=== PATIENT | male | born 1945 | race Caucasian/White ===

== ENCOUNTER 2017-07-08 10:33 | Outpatient (CLI) | payer MEDICARE, OTHER ==
--- NOTE | ~2017-07-08 | OP ---
PATIENT NAME: DEMETRIO WAHL MEDICAL RECORD: [id number] :43 LOCATION:D.M2 D.2117 ADMISSION DATE:07/08/17 SURGEON: BELLA DELONG MD DATE OF OPERATION: 07/08/2017 PROCEDURE: Lead portion of permanent pacemaker placement. INDICATION: Sick sinus syndrome with PAF, jareth escape rhythms. SURGEON: Neymar Harvey MD DESCRIPTION OF PROCEDURE: After the left subclavian was cannulated via modified Seldinger technique by Dr. Harvey, first under fluoroscopic guidance, I placed the RV lead in the RV apex without difficulty. After adequate R waves and thresholds were obtained, then placed the right atrial lead in the right atrial appendage without difficulty. After adequate flutter waves were obtained, the leads were attached to appropriate poles of the generator. The pocket was closed by Dr. Harvey. IMPRESSION: Successful lead portion of permanent pacemaker placement. COMPLICATIONS: None. ESTIMATED BLOOD LOSS: Minimal. DISPOSITION: To the floor, stable. TRANSINT:[id number] Voice Confirmation ID: [id number] DOCUMENT ID: [id number] BELLA DELONG MD at 0920 CC: [id number] DICTATION DATE: 07/08/17 1346 MANAGER HEART FAILURE: 07/08/17 1456 DIS IN 07/09/17 [place] [id number] [place] [address]
--- NOTE | ~2017-07-08 | OP ---
PATIENT NAME: DEMETRIO WAHL MEDICAL RECORD: [id number] :43 LOCATION:D.CAT ADMISSION DATE: SURGEON: SHELL MARIE MD DATE OF OPERATION: 07/08/2017 PREOPERATIVE DIAGNOSIS: Sick sinus syndrome with bradyarrhythmia. POSTOPERATIVE DIAGNOSIS: Sick sinus syndrome with bradyarrhythmia. PROCEDURES: Creation of pacemaker pocket. Insertion of pacemaker leads into the central venous system with closure of the pacemaker pocket. This was a cosurgeon case. The crewman armoured personnel carrier m113 was Jean Claude Jacobs MD GENERAL SURGEON: Shell Marie MD ANESTHESIA: Local with IV sedation. COMPLICATIONS: None. BLOOD LOSS: Minimal. This was a cosurgeon case. Due to the complexity of the operation, it was necessary to have 2 attending surgeons present, a crewman armoured personnel carrier m113 and a general surgeon. DESCRIPTION OF PROCEDURE: The patient was conveyed to the cardiac catheterization laboratory on 07/08/2017. IV sedation was induced by the nursing staff under my direction. The left chest was sterilely prepped and draped. A local anesthetic was used to infiltrate the skin and subcutaneous tissues inferior to the left clavicle. A transverse incision was accomplished inferior to the left clavicle. A subcutaneous pocket was fashioned bluntly in a caudad direction. I had an dietitian assistant pull down on the left arm toward the foot. Through the pacemaker pocket, I was able to advance a needle under the left clavicle, utilizing an antegrade approach to the subclavian vein. This was visualized under fluoroscopy. A guidewire passed easily. This was visualized under fluoroscopy as well. A 9-Mexican dilator sheath was advanced over the wire. This was visualized under fluoroscopic guidance. The dilator was removed. Through the 9-Mexican sheath, the ventricular lead was advanced. Dr. Jean Claude Jacobs positioned the ventricular lead. Appropriate thresholds were obtained. I then sutured the ventricular lead down to the underlying pectoralis fascia with 2-0 TiCron times 2. Over the secondary wire, a 7-Mexican dilator sheath was advanced. This was visualized under fluoroscopic guidance. The dilator and wire were removed. Through the sheath, an atrial lead was advanced. The Peel-Away sheath was then removed. Dr. Jean Claude Jacobs then positioned the atrial lead. Appropriate thresholds were obtained. I then sutured the atrial lead down to the underlying pectoralis fascia with 2-0 TiCron times 2. The pacemaker generator was then brought onto the sterile field. I confirmed with the pacemaker customer response representative the serial number on the ventricular lead. It was then placed within the ventricular dock of the pacemaker and tightened down with the wrench. I tried to dislodge the ventricular lead and was unable to do so. I then confirmed with pacemaker customer response representative the serial number on the atrial lead. This was placed in the atrial dock of the pacemaker generator and then tightened down with the wrench. I tried to dislodge the atrial lead and was unable to do so. The pacemaker generator and wires were then placed in the OPERATIVE REPORT [id number] WAHLDEMETRIO Logan pacemaker pocket. Care was paid to place the wires posterior to the generator. The pacemaker was then sutured to the underlying pectoralis fascia with 2-0 TiCron times 1. I irrigated the pacemaker pocket. There was no bleeding even at low pressure of 8. The deep adipose tissue was closed with interrupted 3-0 Vicryls. The subcutaneous adipose tissue was closed with interrupted 3-0 Vicryls. The skin was approximated with a running intracuticular 3-0 Vicryl. A sterile dressing was applied. We then examined the pacemaker generator and the wires again. The wires appeared to have been well placed and had not been dislodged. The pacemaker generator appeared to be in good position. There was no radiographic evidence of complication. The patient was then conveyed back to their room. I will see the patient on a p.r.n. basis. There is no need for the patient to follow up with me unless the patient develops a complication related to this operative procedure. My involvement in the procedure was creation of the pacemaker pocket, vascular access into the central venous system, placement of the pacemaker generator into the pocket and then closure. TRANSINT:[id number] Voice Confirmation ID: [id number] DOCUMENT ID: [id number] SHELL MARIE MD at 1607 CC: JEAN CLAUDE DELONG MD [id number] DICTATION DATE: 07/08/17 1610 HAND BUFFING WHEEL FORMER: 07/08/17 1629 DEP CLI 07/09/17 [place] [id number] [place] [address]
--- NOTE | ~2017-07-08 | HP ---
PATIENT: DEMETRIO WAHL MEDICAL RECORD: [id number] ACCOUNT: [id number] LOCATION:MARIAM : 43 ADMISSION DATE: 07/08/17 HISTORY AND PHYSICAL EXAMINATION DIAGNOSES: 1. Angina. 2. Hypertension. 3. Hyperlipidemia. 4. Paroxysmal atrial fibrillation. HISTORY OF PRESENT ILLNESS: This is a gentleman who presents with increasing anginal symptomatology in a relatively unstable progressive fashion. He does have a history of coronary artery disease, atrial fibrillation, hypertension, hyperlipidemia. PHYSICAL EXAMINATION: GENERAL APPEARANCE: Well-nourished, well-developed, appears stated age. Level of distress, comfortable. PSYCHIATRIC: Mental status, alert, normal affect. Orientation, oriented to time, place and person. EYES: Lids and conjunctiva, noninjected. No discharge, no pallor. ENT: Lips, teeth, gums, normal dentition. Oropharynx, no cyanosis, no pallor. NECK: Carotid arteries, bilateral normal upstroke, no bruits, no thrills. JUGULAR VEINS: No jugular venous pressure or distention. CERVICAL LYMPH NODES: Nontender, nonenlarged. THYROID: Not enlarged. Nontender. No nodules. LUNGS: Respiratory effort, unlabored. CHEST: Normal curvature. No thoracic deformity. No chest wall tenderness. Percussion, resonant. Auscultation, clear. No wheezes, no rales, no rhonchi. CARDIOVASCULAR: Precordial exam, nondisplaced. No heaves or pericardial thrills. Rate and rhythm, regular. Heart sounds, normal S1, normal S2. No S3, no gallop, no rub. Systolic murmur, not heard. Diastolic murmur, not heard. EXTREMITIES: No cyanosis, no edema. Peripheral pulses, full and equal in all extremities, except as noted. No bruits appreciated. ABDOMEN: Soft, nondistended. Normal aorta. No bruit. Nontender. No masses. Liver, nontender, no hepatomegaly. Spleen, nontender, no splenomegaly. MUSCULOSKELETAL: No joint tenderness. No joint swelling. No erythema. NEUROLOGICAL: Normal gait, normal strength, normal tone. SKIN: Warm and dry. REVIEW OF SYSTEMS: The patient reports easy bruising but reports no swollen glands. The patient reports no fever, no night sweats, no significant weight gain, no significant weight loss. No significant exercise tolerance. The patient reports no dry eyes, no irritation, no vision change. Patient reports no difficulty hearing and no ear pain. Patient reports no frequent nose bleeds or nose and sinus problems. Patient reports on arm pain on exertion. No shortness of breath while lying down. No history of heart murmur. Patient reports no cough, no wheezing or coughing up blood. Patient reports no abdominal pain, no vomiting. Normal appetite. No diarrhea and not vomiting blood. No nausea and no constipation. Patient reports no incontinence. No difficulty urinating. No hematuria. No increased frequency. Patient reports no muscle aches. No weakness, no arthralgias, no back pain. No swelling of the extremities. Patient reports no abnormal mole, no jaundice, no rashes. Reports no loss of consciousness. No weakness and no numbness. No seizures, dizziness, HISTORY AND PHYSICAL [id number] DEMETRIO WAHL or headaches. The patient reports no depression, no sleep disturbance, feeling safe in a relationship and no alcohol abuse. Patient reports on fatigue. Reports no runny nose or sinus pressure. No itching, no hives, and no frequent sneezing. IMPRESSION: Anginal symptomatology in an increasing fashion. We will proceed with coronary angiography. Further care depends upon the findings of the angiography. TRANSINT:[id number] Voice Confirmation ID: [id number] DOCUMENT ID: [id number] MONIKA WEBB MD at 1153 CC: [id number] DICTATION DATE: 07/08/17 0951 SHELLFISH FARMING SUPERVISOR: 07/08/17 1003 DEP CLI 07/09/17 [place] [id number] [place] [id number]
--- NOTE | ~2017-07-08 | HEMODYNAMI ---
PATIENT:DEMETRIO WAHL MEDICAL RECORD: [id number] : 41 LOCATION:D.CAT ADMISSION DATE: 07/08/17 Generatedon:07/08/201714:00 Patient name: DEMETRIO WAHL Patient #: [id number] SSN: : 1945 Date of study: 07/08/2017 Page: Of Hemodynamic Procedure Report Patient Data Patient Demographics Procedure consent was obtained First Name: DEMETRIO Gender: Male Last Name: VISH : 1945 [facility] Initial: C Age: 72 year(s) Patient #: [id number] Race: Unknown Additional ID: [id number] Contact details Address: [address] [place] [address] State: [place] City: [place] Zip code: [address] Past Medical History Allergies Allergen Reaction Date Comments Reported Penicillins 07/08/2017 Morphine 07/08/2017 Admission Admission Data Admission Date: 07/08/2017 Admission Time: 10:33 Procedure Procedure Types Cath Procedure Diagnostic Procedure PPM/ICD PPM Dual Implant Sedation Charges Moderate Sedation up to 30 minutes Procedure Description Procedure Date Procedure Date: 07/08/2017 Procedure Start Time: 13:24 Procedure End Time: 14:00 Procedure Staff Name Function Jean Claude Delong MD Performing Physician Neymar Harvey MD Assisting physician Abdoulaye Reyes RN Nurse Chana Vaughn RT Monitor Jose Alejandro Mcrae RT Scrub Procedure Data Cath Procedure Fluoroscopy Diagnostic fluoroscopy Total fluoroscopy Time: 1 time: 1 min min Diagnostic fluoroscopy Total fluoroscopy dose: dose: 44.1 mGy 44.1 mGy Estimated blood loss: 5 ml Procedure Complications No complications Procedure Medications Medication Administration Route Dosage Vancomycin I.V.P.B 1 g Bupivacaine 0.5% S.Q. 100 Lidocaine 1% with added to field 20 Epi 0.9% NaCl I.V. 25 ml/hr Vancomycin Topical 1 g Irrigation Versed I.V. 2 mg Versed I.V. 2 mg Versed I.V. 2 mg Hemodynamics Rest Heart Rate: 47 (bpm) Snapshots Pre Cath Intra NCS Post Cath Vital Signs Time Heart Resp SPO2 etCO2 NIBP (mmHg) Rhythm Pain Sedation Rate (ipm) (%) (mmHg) Status Level (bpm) 13:08:09 47 20 96 0 120/72(104) A-Flutter 0 (11) 10(A) , No pain 13:12:36 45 19 94 0 136/72(108) A-Flutter 0 (11) 10(A) , No pain 13:17:02 48 13 96 0 123/79(112) A-Flutter 0 (11) 10(A) , No pain 13:21:31 56 28 96 0 128/65(105) A-Flutter 0 (11) 10(A) , No pain 13:26:01 58 17 96 0 117/78(91) A-Flutter 0 (11) 10(A) , No pain 13:30:19 75 18 98 0 119/89(100) A-Flutter 0 (11) 10(A) , No pain 13:34:39 99 16 99 0 135/86(110) A-Flutter 0 (11) 10(A) , No pain 13:39:07 60 17 97 0 150/80(118) A-Flutter 0 (11) 10(A) , No pain 13:43:36 56 17 98 0 119/83(99) A-Flutter 0 (11) 10(A) , No pain 13:47:56 60 18 97 0 137/81(120) A-Flutter 0 (11) 10(A) , No pain 13:52:24 59 20 96 0 130/79(114) A-Flutter 0 (11) 10(A) , No pain 13:56:46 89 19 96 0 136/97(115) A-Flutter 0 (11) 10(A) , No pain Medications Time Medication Route Dose Verified Delivered Reason Notes Effectiv eness by by 13:00:17 Vancomycin I.V.P.B 1 g Jean Claude Stanford used for [facility] Darrick Reyes paid search manager 13:06:03 Bupivacaine S.Q. 100 Jean Claude Blackmon for local 0.5% ml x2 [facility] Darrick Harvey anesthetic MD SMITH 13:06:12 Lidocaine added 20 ml Jean Claude Blackmon for local 1% with Epi to x2 St Darrick Harvey anesthetic field MD SMITH 13:06:22 0.9% NaCl I.V. 25 Jean Claude Blackmon Per ml/hr [facility] Darrick Harvey physician MD SMITH 13:06:37 Vancomycin Topical 1 g Jean Claude Blackmon used for Irrigation [facility] Darrick Harvey procedure MD SMITH 13:21:59 Versed I.V. 2 mg Jean Claude Stanford for [facility] Darrick Reyes RN anxiety 13:26:31 Versed I.V. 2 mg Jean Claude Blackmon for [facility] Darrick chew MD, MD 13:34:31 Versed I.V. 2 mg Jean Claude Blackmon for [facility] Darrick chew MD, MD Procedure Log Time Note 12:37:31 Abdoulaye Reyes RN sent for patient. Start room use. 12:37:32 Time tracking: Regular hours 12:37:36 Plan of Care:Hemodynamics will remain stable., Cardiac rhythm will remain stable., Comfort level will be maintained., Respiratory function will remain adequate., Patient/ family verbilizes understanding of procedure., Procedure tolerated without complication., Recovers from procedure without complications.. 12:45:22 Patient received from Pre/Post Procedure Room to [facility] 3 Alert and oriented. Tansferred to table in Supine position. 12:45:24 Warm blankets applied, and hakan hugger turned on for patient comfort. 12:45:24 Correct patient and procedure confirmed by team. 12:45:25 Signed procedure consent form obtained from patient. 12:45:26 ECG and BP/O2 sat monitors applied to patient. 12:45:27 Full Disclosure recording started 12:45:33 Rhythm: unchanged. 12:45:39 H&P Date Dictated: 07/08/2017 Within 30 days and on chart.. 12:45:40 Pre-procedure instructions explained to patient. 12:45:40 Pre-op teaching completed and patient verbalized understanding. 12:45:42 Family in waiting room. 12:45:43 Patient NPO since Midnight. 12:55:12 Use device set FRANK PPM 12:55:17 2-0 Ticron Multipack ([id number]) opened to sterile field. 12:55:19 3-0 Vicryl Single Pack [id number] opened to sterile field. 12:55:34 3-0 Vicryl Single Pack [id number] opened to sterile field. 12:55:36 Cautery Tip Pellet Machine Operator opened to sterile field. 12:55:36 Cautery Pushbutton Pencil opened to sterile field. 12:55:37 Mepilex Dressing (157634) opened to sterile field. 12:55:43 Immobilizer Large opened to sterile field. 12:57:06 Patient allergic to Penicillins 12:57:10 Patient allergic to Morphine 12:57:14 Is the patient allergic to Iodine/contrast media? No. 12:57:19 Is patient on blood thinner?Yes 12:57:48 Xarelto last dose 07-05-17 12:57:53 Patient diabetic? No. 12:57:58 Previous problem with sedation/anesthesia? No ? 12:58:01 Snore? Yes 12:58:02 Sleep apnea? Yes 12:58:03 Deviated septum? No 12:58:04 Opens mouth fully? Yes 12:58:04 Sticks out tongue? Yes 12:58:08 Airway obstruction? No ? 12:58:15 Dentures? No ? 12:58:29 Patient pain scale 0/10 ?. 12:58:35 IV patent on arrival in left hand with 0.9% NaCl at [facility]. 12:58:37 Lab results completed and on chart. 12:58:42 Left chest area was prepped with chlora-prep and draped in sterile fashion 12:58:43 Alarms reviewed by R. N. 12:58:44 Sharps counted by scrub and verified by R.N. 13:00:15 Baseline sample Acquired. 13:00:17 Vancomycin 1 g I.V.P.B was administered by Abdoulaye Reyes RN; used for procedure; 13:02:48 pt requested no pain medication only versed due to becomes angry with opaites. 13:05:31 Physician paged 13:06:03 Bupivacaine 0.5% 100 ml x2 S.Q. was administered by Neymar Harvey MD; for local anesthetic; 13:06:12 Lidocaine 1% with Epi 20 ml x2 added to field was administered by Neymar Harvey MD; for local anesthetic; 13:06:22 0.9% NaCl 25 ml/hr I.V. was administered by Neymar Harvey MD; Per physician; 13:06:37 Vancomycin Irrigation 1 g Topical was administered by Neymar Harvey MD; used for procedure; 13:06:39 Vital chart was started 13:07:33 Physician responded to page. 13:08:36 Medtronic Advisa MRI PPM Dual Generator [id number] opened to sterile field. 13:08:37 Medtronic 4074-52 PPM Lead opened to sterile field. 13:08:39 Medtronic 4574-45 PPM Lead opened to sterile field. 13:20:59 Final Timeout: patient, procedure, and site verified with staff and physician. All members of the team are in agreement. 13:21:06 Left chest site verified by team. 13:21:09 Physical assessment completed. ASA score P 2 - A patient with mild systemic disease as per Jean Claude Delong MD. 13:21:11 Sedation plan: IV Moderate Sedation Medication:Versed, Fentanyl 13:21:59 Versed 2 mg I.V. was administered by Abdoulaye Reyes RN; for anxiety; 13:24:08 Procedure started. 13:24:24 Medtronic sales representative jewelry VENTURA ORTEGA present for procedure. 13:24:44 Pre sharps counted by scrub and verified by RN: Sutures: 14; Sponges: 5; Stick needles: 2; Skin needles: 2; Blade: 1; Cautery: 1 13:24:46 Grounding pad site Left thigh. 13:24:48 Grounding pad site free from injury. 13:24:53 Lidocaine 1% w/epi and Bupivacaine 0.5% was administered to left subclavicular area by Neymar Harvey MD . 13:25:01 Incision made to left subclavicular area. 13:26:31 Versed 2 mg I.V. was administered by Neymar Harvey MD; for anxiety; 13:27:03 Generator pocket made/opened. 13:30:36 Left subclavian vein accessed with 9Fr Peel Away Sheath. 13:31:07 INTRODUCER J WIRE ADVANCED X 2 13:31:29 DR DELONG SCRUBBED IN 13:33:04 Ventricular lead inserted and advanced. 13:34:28 Ventricular lead positioned. 13:34:31 Versed 2 mg I.V. was administered by Neymar Harvey MD; for anxiety; 13:35:26 Ventricular lead tested. 13:36:51 Peel-a-way sheath was split and removed. 13:36:55 Ventricular lead attachment was completed with 2-0 ticron. 13:38:31 Left subclavian vein accessed with 7Fr Peel Away Sheath. 13:38:33 Atrial lead inserted and advanced. 13:39:28 Atrial lead positioned. 13:40:05 Atrial lead tested. 13:40:58 Peel-a-way sheath was split and removed. 13:41:04 Atrial lead attachment was completed with 2-0 ticron. 13:43:33 5 SUTURE NEEDLES ADDED TO FIELD 13:43:42 2-0 Ticron Multipack ([id number]) opened to sterile field. 13:44:08 PPM Dual was attached to lead(s) and inserted into pocket. 13:44:26 Generator was sutured in place with 2-0 ticron. 13:44:49 Device pocket was irrigated with Vancomycin. 13:46:08 Subcutaneous closure was completed with 3-0 vicryl. 13:51:15 Skin closure was completed with 3-0 vicryl. 13:51:27 Lt Chest incision was dressed with 4 x 4 and Tegaderm. 13:51:31 Procedure ended.(Physican Out) 13:51:40 Fluoroscopy time 01.00 minutes. 13:51:44 Fluoroscopy dose: 44.1 mGy 13:51:44 Flurop Dose total: 44.1 13:52:29 Sharps counted by scrub and verified by R.N. 13:52:31 Insertion/operative site no bleeding no hematoma. 13:52:54 Post-op/insertion site Left Chest area dressed using a Mepilex dressing. 13:53:01 Post Chest area:stable, clean and dry 13:53:03 Post Procedure Pulses reassessed and unchanged 13:53:09 Post-procedure physical assessment completed. ASA score P 2 - A patient with mild systemic disease as per Jean Claude Delong MD. 13:55:24 Post procedure rhythm: unchanged. 13:55:27 Estimated blood loss: 5 ml 13:55:28 Post procedure instruction explained to patient.Patient verbalizes understanding. 13:55:28 Patient needs reinforcement of post procedure teaching. 13:55:29 Procedure and supply charges have been captured, reviewed, submitted and are correct. 13:55:36 Procedure Complication : No complications 13:55:38 See physician's report for complete and final results. 13:57:57 Procedure type changed to Cath procedure, Diagnostic procedure, PPM/ICD, PPM Dual Implant, Sedation Charges, Moderate Sedation up to 30 minutes 13:58:20 Vital chart was stopped 13:59:55 Report given to PCU. 14:00:00 Patient transfered to PCU with Bed. 14:00:15 Procedure ended. 14:00:15 Full Disclosure recording stopped 14:00:19 End room use (Document Last) Device Usage Item Name Manufacture Quantity Catalog Hospital Part Current Minimal Lot# / Number Charge Number Stock Stock Serial# Code 2-0 Ticron Ethicon 2 [id number] [id number] 5 Multipack ([id number]) 3-0 Vicryl Ethicon 2 [id number] 967350 285940 5 Single Pack [id number] Cautery Tip Microtek 1 [id number] [id number] [id number] 5 Pellet Machine [employer] Cautery Microtek 1 [id number] [id number] 33886 [id number] 5 Pushbutton [employer] Inc[employer] Pencil Mepilex Cardinal 1 [id number] 837832 [id number] [id number] 5 [facility] ([id number]) Immobilizer Cardinal 1 [id number] 790440 671999 564106 5 Large Health Medtronic Medtronic 1 [id number] [id number] [id number] 5 SN Advisa MRI [id number] PPM Dual EXP Generator 2018-09-29 A2DR01 Medtronic Medtronic 1 4074-52 [id number] [id number] 5 SN 4074-52 PPM [id number] Lead EXP 2019-03-11 Medtronic Medtronic 1 4574-45 [id number] [id number] 5 SN 4574-45 PPM [id number] Lead EXP 2019-03-10 Signature Audit Corinne Stage Time Signature Unsigned Intra-Procedure 07/08/2017 Chana 2:00:29 PM Counts RT(R) Signatures Monitor : Chana Signature : Counts RT Date : Time : [place] [address] [place] [address]
[2017-07-08] MEDS ORDERED: RESTORIL15 MG PO (10:44)
[2017-07-08] MEDS ORDERED: TRIAMTERENE-HCT1 TA1 PO (10:44)
[2017-07-08] MEDS ORDERED: ZOCOR40 MG PO (10:45)
[2017-07-08] MEDS ORDERED: NEURONTIN 300300 MG PO (10:46)
[2017-07-08] MEDS ORDERED: TRAZODONE HCL50 MG PO (10:46)
[2017-07-08] MEDS ORDERED: XARELTO20 MG PO (10:47)
[2017-07-08] MEDS ORDERED: BUPROPION XL300 MG PO (10:47)
[2017-07-08] MEDS ORDERED: ULTRAM50 MG PO (10:48)
[2017-07-08] MEDS ORDERED: ZOVIRAX400 MG PO (10:49)
[2017-07-08] MEDS ORDERED: BETAPACE160 MG PO (10:50)
[2017-07-08] MEDS ORDERED: ECOTRIN325 MG PO (10:50)
[2017-07-08 11:04] VITALS: BP 121/86; BMI 38.1
[2017-07-08 11:32] LABS: ANION GAP 11.4 mmol/L (8-16); APTT 30.7 SECONDS (22.8-39.4); CALCIUM 9.3 mg/dL (8.5-10.1); CARBON DIOXIDE 28.1 mmol/L (21.0-32.0); CREATININE - SERUM 1.5 mg/dL (0.6-1.3); INR 1.15 (0.85-1.17); POTASSIUM - SERUM 4.5 mmol/L (3.5-5.1); PROTIME 14.3 SECONDS (11.6-15.0)
[2017-07-08 11:52] LABS: HEMATOCRIT 45.1 % (42.0-54.0); HEMOGLOBIN 15.5 g/dL (13.5-17.5); MCH 32.2 pg (26.0-34.0); MCHC 34.4 g/dL (31.0-37.0); MCV 93.8 fL (80.0-100.0); MEAN PLATELET VOLUME 10.6 fL (7.4-10.4); RBC 4.81 10x6/uL (4.20-6.10); RDW 12.8 % (11.5-14.5); WBC 5.5 10x3/uL (4.8-10.8)
[2017-07-08 16:13] VITALS: BP 120/79
[2017-07-08 18:27] VITALS: BP 138/80; BMI 38.3
[2017-07-08 20:00] VITALS: BP 118/67
[2017-07-09] VITALS: BP 108/69
[2017-07-09 04:00] VITALS: BP 113/64
[2017-07-09 08:00] VITALS: BP 128/68
== END 2017-07-09 10:51 | disposition home or self-care (01) ==
LOC: OBSVTIME → D.CATH 10:33 → D.M2 14:33 → D.CATH 14:33 → D.M2 14:33 → OBSVTIME 14:33 → D.M2 07-09 09:58 → D.SDCHOLD 07-09 09:58 → D.M2 07-09 10:50 → D.CATH 07-09 10:51 → D.M2 07-09 10:51
PROVIDERS: Internal Medicine Interventional Cardiology
DX: I25.119 Atherosclerotic heart disease of native coronary artery with unspecified angina pectoris (principal); I49.5 Sick sinus syndrome; I10 Essential (primary) hypertension; E78.5 Hyperlipidemia, unspecified; I48.0 Paroxysmal atrial fibrillation; Z01.812 Encounter for preprocedural laboratory examination

== ENCOUNTER 2017-10-07 11:19 | Outpatient (CLI) | payer MEDICARE, OTHER ==
[~2017-10-07] VITALS: Ht 180.3 cm; Wt 124.5 kg
--- NOTE | ~2017-10-07 | HEMODYNAMI ---
PATIENT:DEMETRIO WAHL MEDICAL RECORD: [id number] : 41 LOCATION:D.CAT ADMISSION DATE: 10/07/17 Generatedon:10/07/201713:05 Patient name: DEMETRIO WAHL Patient #: [id number] SSN: : 1945 Date of study: 10/07/2017 Page: Of Hemodynamic Procedure Report Patient Data Patient Demographics Procedure consent was obtained First Name: DEMETRIO Gender: Male Last Name: VISH : 1945 [facility] Initial: C Age: 72 year(s) Patient #: [id number] Race: Unknown Additional ID: [id number] Contact details [address]: [address] [place] [address] State: [place] City: [place] Zip code: [address] Past Medical History Allergies Allergen Reaction Date Comments Reported Penicillins 07/08/2017 Morphine 07/08/2017 Other allergy 10/07/2017 MORPHINE, PCN Admission Admission Data Admission Date: 10/07/2017 Admission Time: 11:19 Procedure Procedure Types Cath Procedure Diagnostic Procedure Cardioversion External Procedure Description Procedure Date Procedure Date: 10/07/2017 Procedure Start Time: 12:55 Procedure End Time: 13:05 Procedure Staff Name Function Norm Hernandez MD Performing Physician Droetha Vasquez RT Monitor Anastacio Cavanaugh RT Tutoring Assistant Josemanuel King RN Nurse Rudy Camacho CRNA Additional personnel Procedure Data Cath Procedure Fluoroscopy Diagnostic fluoroscopy Total fluoroscopy Time: 0 time: 0 min min Diagnostic fluoroscopy Total fluoroscopy dose: 0 dose: 0 mGy mGy Contrast Material Contrast Material Type Amount (ml) Isovue 300 0 Estimated blood loss: 0 ml Procedure Complications No complications Procedure Medications Medication Administration Route Dosage 0.9% NaCl I.V. 100 ml/hr Oxygen etCO2 Nasal cannula 2 l/min Refer to Anesthesia Notes for Sedation Medications Hemodynamics Rest Heart Rate: 77 (bpm) Snapshots Pre Cath Intra NCS Post Cath Vital Signs Time Heart Resp SPO2 etCO2 NIBP (mmHg) Rhythm Pain Sedation Rate (ipm) (%) (mmHg) Status Level (bpm) 12:50:21 61 18 97 41.1 146/85(113) A-Flutter 0 (11) 10(A) , No pain 12:55:10 59 18 98 35.1 153/96(130) A-Flutter 0 (11) 10(A) , No pain 12:59:59 79 14 98 23.9 116/102(111) A-Flutter 0 (11) 10(A) , No pain 13:04:27 79 4 90 29.9 125/86(107) A-Flutter 0 (11) 10(A) , No pain Medications Time Medication Route Dose Verified Delivered Reason Notes Effective ness by by 12:50:07 0.9% NaCl I.V. 100 Josemanuel Josemanuel Per ml/hr Fernando King physician RN RN 12:50:21 Oxygen etCO2 2 Josemanuel Josemanuel Per Nasal l/min Fernando King physician cannula RN RN 12:54:53 Refer to Josemanuel Abernathy for Anesthesia Fernando King sedation Notes for RN RN Sedation Medications Procedure Log Time Note 12:33:41 H&P Date Dictated: 09/22/2017 Within 30 days and on chart., H&P Addendum completed by physician on day of procedure. (MUST COMPLETE FOR ALL OUTPATIENTS). 12:33:49 Signed procedure consent form obtained from patient. 12:33:51 Time tracking: Regular hours (M-F 7:00 - 5:00) 12:33:56 Plan of Care:Hemodynamics will remain stable., Cardiac rhythm will remain stable., Comfort level will be maintained., Respiratory function will remain adequate., Patient/ family verbilizes understanding of procedure., Procedure tolerated without complication., Recovers from procedure without complications.. 12:37:42 Josemanuel King RN sent for patient. Start room use. 12:38:11 Patient allergic to Other allergyMORPHINE, PCN 12:42:27 Patient arrived from Pre/Post Procedure Room to CCL 1. Patient remains on bed/stretcher for procedure. 12:42:30 Warm blankets applied, and hakan hugger turned on for patient comfort. 12:42:31 Correct patient and procedure confirmed by team. 12:42:33 ECG and BP/O2 sat monitors applied to patient. 12:49:16 Vital chart was started 12:49:18 Baseline sample Acquired. 12:50:06 Rhythm: atrial flutter 12:50:07 0.9% NaCl 100 ml/hr I.V. was administered by Josemanuel King RN; Per physician; 12:50:07 Full Disclosure recording started 12:50:09 Pre-procedure instructions explained to patient. 12:50:10 Pre-op teaching completed and patient verbalized understanding. 12:50:12 Family in waiting room. 12:50:13 Patient NPO since Midnight. 12:50:15 Is the patient allergic to Iodine/contrast media? No. 12:50:17 Is patient on blood thinner?Yes 12:50:19 ACC The patient was administered the following blood thiners within the last 24 hours: Xarelto 12:50:21 Oxygen 2 l/min etCO2 Nasal cannula was administered by Josemanuel King RN; Per physician; 12:50:21 Patient diabetic? No. 12:50:25 Previous problem with sedation/anesthesia? No ? 12:50:26 Snore? Yes 12:50:28 Sleep apnea? Yes 12:50:29 Deviated septum? No 12:50:30 Opens mouth fully? Yes 12:50:31 Sticks out tongue? Yes 12:50:33 Airway obstruction? No ? 12:50:36 Dentures? No ? 12:50:39 Patient pain scale 0/10 ?. 12:50:45 IV patent on arrival in left forearm with 0.9% NaCl at [facility]. 12:52:04 Lab results completed and on chart. 12:52:10 Alarms reviewed by Nitesh Guadalupe 12:52:15 Rudy Camacho CRNA present and monitoring patient for TIVA. 12:52:24 Quick Combo opened to sterile field. 12:52:26 Quick combo pads placed on patients chest and back. 12:54:13 Physician arrived 12:54:13 --------ALL STOP TIME OUT------ 12:54:14 Final Timeout: patient, procedure, and site verified with staff and physician. All members of the team are in agreement. 12:54:19 Physical assessment completed. ASA score P 3 - A patient with severe systemic disease as per Norm Hernandez MD. 12:54:23 Sedation plan: TIVA Medication:Propofol 12:54:53 Refer to Anesthesia Notes for Sedation Medications was administered by Josemanuel Lorigan RN; for sedation; 12:55:13 Procedure started. 12:57:31 Defibrillator synced and charged to 250 Joules. 12:57:34 Shock delivered. 12:57:46 Patient cardioverted to sinus rhythm . 12:57:59 Procedure ended.(Physican Out) 12:58:27 Fluoroscopy time 00.00 minutes. 12:58:28 Fluoroscopy dose: 0 mGy 12:58:28 Flurop Dose total: 0 12:58:31 Contrast amount:Isovue 300 0ml. 12:58:40 Post-procedure physical assessment completed. ASA score P 3 - A patient with severe systemic disease as per Norm Hernandez MD. 12:59:04 Post procedure rhythm: paced 12:59:07 Estimated blood loss: 0 ml 12:59:08 Post procedure instruction explained to patient.Patient verbalizes understanding. 12:59:24 Procedure and supply charges have been captured, reviewed, submitted and are correct. 12:59:27 Procedure Complication : No complications 13:05:02 Vital chart was stopped 13:05:02 See physician's report for complete and final results. 13:05:04 Report given to Pre/Post Procedure Room. 13:05:06 Patient transfered to Pre/Post Procedure Room with Stretcher. 13:05:08 Procedure ended. 13:05:08 Full Disclosure recording stopped 13:05:11 End room use (Document Last) Device Usage Item Manufacture Quantity Catalog Hospital Part Current Minimal Lot# / Name Number Charge Number Stock Stock Michael sorenson# Code Legend Silicon 1 [id number] Combo Signature Audit [place] Stage Time Signature Unsigned Intra-Procedure 10/07/2017 Anastacio Cavanaugh 1:05:36 PM RT(R) Signatures Monitor : Doretha Vasquez Signature : RT Date : Time : [facility] [address] [place] [address]
[~2017-10-07 11:19] MED LIST: BETAPACE160 MG PO; BUPROPION XL300 MG PO; ECOTRIN325 MG PO; NEURONTIN 300300 MG PO; RESTORIL15 MG PO; TRAZODONE HCL50 MG PO; TRIAMTERENE-HCT1 TA1 PO; ULTRAM50 MG PO; XARELTO20 MG PO; ZOCOR40 MG PO; ZOVIRAX400 MG PO
[2017-10-07 11:58] VITALS: BP 129/88; Ht 180.3 cm; Wt 124.5 kg
[2017-10-07 12:28] LABS: BASOPHILS 0.4 % (0-2); EOSINOPHILS 2.6 % (0-7); HEMATOCRIT 45.6 % (42.0-54.0); HEMOGLOBIN 15.8 g/dL (13.5-17.5); IMMATURE GRANULOCYTES 0.4 % (0-5); LYMPHOCYTES 17.8 % (15-50); MCH 32.5 pg (26.0-34.0); MCHC 34.6 g/dL (31.0-37.0); MCV 93.8 fL (80.0-100.0); MEAN PLATELET VOLUME 10.3 fL (7.4-10.4); MONOCYTES 10.1 % (2-11); NEUTROPHILS 68.7 % (40-80); PLATELET COUNT 133 10x3/uL (130-400); RBC 4.86 10x6/uL (4.20-6.10); RDW 13.5 % (11.5-14.5); WBC 4.9 10x3/uL (4.8-10.8)
[2017-10-07 12:40] LABS: ANION GAP 9.5 mmol/L (8-16); CALCIUM 8.7 mg/dL (8.5-10.1); CARBON DIOXIDE 26.9 mmol/L (21.0-32.0); CREATININE - SERUM 1.3 mg/dL (0.6-1.3); POTASSIUM - SERUM 4.4 mmol/L (3.5-5.1)
[2017-10-07 12:51] LABS: INR 1.69 (0.85-1.17); PROTIME 19.4 SECONDS (11.6-15.0)
== END 2017-10-07 14:15 ==
LOC: D.CATH 11:19
PROVIDERS: Internal Medicine Cardiovascular Disease
DX: I48.1 Persistent atrial fibrillation (principal)

== ENCOUNTER 2018-04-08 16:54 | Emergency (ER) | payer MEDICARE, OTHER ==
[~2018-04-08] VITALS: Ht 180.3 cm; Wt 125.0 kg
[2018-04-08 17:11] VITALS: Ht 180.3 cm; Wt 125.0 kg
[2018-04-08 18:07] LABS: BASOPHILS 0.3 % (0-2); EOSINOPHILS 2.6 % (0-7); IMMATURE GRANULOCYTES 0.2 % (0-5); LYMPHOCYTES 19.7 % (15-50); MCH 33.1 pg (26.0-34.0); MCHC 34.8 g/dL (31.0-37.0); MEAN PLATELET VOLUME 10.3 fL (7.4-10.4); MONOCYTES 8.3 % (2-11); NEUTROPHILS 68.9 % (40-80); RBC 4.84 10x6/uL (4.20-6.10); RDW 12.5 % (11.5-14.5); WBC 6.2 10x3/uL (4.8-10.8)
[2018-04-08 18:10] LABS: PLATELET COUNT 162 10x3/uL (130-400)
[2018-04-08 18:29] LABS: ALBUMIN 4.1 g/dL (3.4-5.0); ALKALINE PHOSPHATASE 90 U/L (46-116); ALT (SGPT) 26 U/L (10-68); BILIRUBIN - TOTAL 0.46 mg/dL (0.2-1.3); CALC OSMOLALITY 273 mosm/kg (275-300); CARBON DIOXIDE 31.4 mmol/L (21.0-32.0); CHLORIDE - SERUM 98 mmol/L (98-107); CREATININE - SERUM 1.4 mg/dL (0.6-1.3); GLUCOSE 102 mg/dL (74-106); POTASSIUM - SERUM 4.6 mmol/L (3.5-5.1); PROTEIN - SERUM 7.3 g/dL (6.4-8.2); SODIUM 136 mmol/L (136-145); UREA NITROGEN 17 mg/dL (7-18); eGFR NON AFRICAN AMERICAN 52 mL/min (90-120)
[2018-04-08 18:44] LABS: CKMB 1.8 U/L (0.0-3.6); CREATINE KINASE 123 UL (21-232)
[2018-04-08 18:50] LABS: TROPONIN-I < 0.017 ng/mL (0.000-0.060)
[2018-04-08 22:40] VITALS: BP 128/65
== END 2018-04-08 22:41 | disposition home or self-care (01) ==
LOC: D.ER 16:54
PROVIDERS: Emergency Medicine
DX: M54.6 Pain in thoracic spine (principal); Z86.79 Personal history of other diseases of the circulatory system; I10 Essential (primary) hypertension

== ENCOUNTER → 2019-10-07 09:01 | Outpatient (CLI) | payer MEDICARE, BC ==
[2018-04-08 17:11] VITALS: BMI 38.4
== END | disposition home or self-care (01) ==
LOC: D.HCCARDIO 09:00
PROVIDERS: ATTEND Internal Medicine Cardiovascular Disease
DX: I25.10 Atherosclerotic heart disease of native coronary artery without angina pectoris (principal)